=== PATIENT | female | born 1955 | race African-American/Black ===

== ENCOUNTER → 2016-09-01 | Outpatient (CLI) | payer BC, MEDICARE ==
[~2016-09-01] MED LIST: CIPRO 500MG TA500 MG PO; D3-55000 IU PO; ELITE MAGNESIUM1 TAB PO; FLAGYL500 MG PO; HAIR VITE-SUPER1 CAP PO; IBUPROFEN400 MG PO; LEVSIN 0.10.125 MG/T PO; LOPRESSOR 225 MG/TAB PO; MSM1000 MG PO; MULTIPLE VITAMI1 TAB PO; MVI; NATURE'S BLE1000 MCG PO; PEPCID 20MG TAB20 MG PO; PEPCID40 MG PO; PERCOCET 325 MG1 TA2 PO; PHENERGAN 25 TA25 MG PO; REGLAN 10MG10 MG/TAB PO; ROXICODONE 55 MG/TAB PO; SANDOSTATI100 MCG/ML; ULTRAM 50MG TAB50 MG PO; ZESTRIL 5MG5 MG PO; ZOFRAN 4MG T4 MG/TAB PO; [UNRECOGNIZED DRUG - OTHER] SC
== END ==
LOC: COL.RAD 12:45
DX: E04.1 Nontoxic single thyroid nodule (principal)

== ENCOUNTER → 2016-09-22 | Outpatient (CLI) | payer BC, MEDICARE | LOC: MC.RAD 09:40 | DX: Z12.31 Encounter for screening mammogram for malignant neoplasm of breast (principal) ==

== ENCOUNTER → 2018-06-24 | Outpatient (CLI) | payer MEDICARE | LOC: COL.RAD 06-21 14:00 | DX: E22.1 Hyperprolactinemia (principal) | CPT/HCPCS: A9585 ==

== ENCOUNTER → 2020-03-23 | Outpatient (CLI) | payer MEDICARE | LOC: COL.RAD 08:30 | DX: C7A.019 Malignant carcinoid tumor of the small intestine, unspecified portion (principal); K76.89 Other specified diseases of liver; Z90.49 Acquired absence of other specified parts of digestive tract | CPT/HCPCS: Q9967 ==

== ENCOUNTER 2023-03-23 08:23 | Outpatient (RCR) | payer OTHER, MEDICARE ==
[~2023-03-23] VITALS: Ht 162.6 cm; Wt 60.3 kg
[2023-03-23] VITALS (8 sets, daily range): BP systolic 147–181; BP diastolic 83–105; PULSE 56–62; TEMP 97.8–98.8
[~2023-03-23 08:23] MED LIST changes: +FLEXERIL 1010 MG/TAB PO; +LIDODERM 5% PATC1 EA TP
[2023-03-23] MEDS ORDERED: Acetaminophen 325 MG TAB PO SCH (10:45)
[2023-03-23] MEDS ORDERED: NS 250 ML IV SCH (10:45)
[2023-03-23] MEDS ORDERED: diphenhydrAMINE 25 MG CAP PO SCH (10:45)
[2023-03-23] MEDS ORDERED: NAPROSYN 2250 MG/TAB PO (13:12)
[2023-03-23] MEDS ORDERED: COREG12.5 MG PO (13:16)
--- NOTE | 2023-03-23 14:32 | NUR ---
pt tolerated blood infusion well. vs remained within pt's normal limits and she was accompanied to the main lobby by following infusion. IV discontinued and pt free from acute concerns and complaints upon discharge.
== END 2023-03-23 14:40 | disposition home or self-care (01) ==
LOC: EUO 08:23
DX: C7A.8 Other malignant neuroendocrine tumors (principal); D50.9 Iron deficiency anemia, unspecified
CPT/HCPCS: J7050; P9016